=== PATIENT | male | born 1970 | race Caucasian/White ===

== ENCOUNTER 2016-03-22 13:06 | Emergency (ER) | payer BC, OTHER ==
[2016-03-22 13:11] VITALS: BP 138/85; PULSE 100; RESP 18; TEMP 98.1
[2016-03-22] MEDS ORDERED: HYDROmorphone 1 MG/ML 1 ML SYRINGE IM STA (13:27)
[2016-03-22] MEDS ORDERED: methylPREDNISolone SOD SUCCI 125 MG/2 ML VIAL IM ONE (13:27)
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
== END 2016-03-22 13:48 | disposition home or self-care (01) ==
LOC: EC 13:06
DX: G89.29 Other chronic pain (principal); M54.5 Low back pain; I10 Essential (primary) hypertension; Z79.899 Other long term (current) drug therapy; X58.XXXA Exposure to other specified factors, initial encounter
CPT/HCPCS: 99283; 96372 ×2; J2930; J1170

== ENCOUNTER 2021-05-10 09:12 | Observation (INO) | payer MEDICARE, BC ==
[2021-05-10] MEDS ORDERED: ASPIRIN 81 MG PO STA (09:20)
--- NOTE | 2021-05-10 09:20 | ED ---
General Adult HPI - General Chief complaint: Chest Pain Stated complaint: chest pain Time Seen by Provider: 05/10/21 09:20 Source: patient, RN notes reviewed Mode of arrival: ambulatory Limitations: no limitations - History of Present Illness Initial comments: Patient is a pleasant 50-year-old male presenting to the emergency Department with chest discomfort. Discomfort is described as tightness over the past couple of weeks. Patient has not felt well. Patient has been a little bit fatigued. Patient does get some associated dyspnea. Occasional palpitations. No history of similar symptoms previously. Discomfort is mild this time. No leg pain or leg swelling. - Related Data Home Medications Medication Instructions Recorded Confirmed Cyclobenzaprine [Flexeril] 10 mg PO HS 04/19/14 03/22/16 Gabapentin [Neurontin] 300 mg PO BID 04/19/14 03/22/16 Losartan Potassium 100 mg PO DAILY 04/19/14 03/22/16 Naproxen 500 mg PO Q12HR PRN 04/19/14 03/22/16 DULoxetine HCL [Cymbalta] 60 mg PO DAILY 03/22/16 03/22/16 oxyCODONE HCL/ACETAMINOPHEN 1 tab PO QID 03/22/16 03/22/16 [Percocet 10-325 mg] Previous Rx's Medication Instructions Recorded predniSONE 50 mg PO DAILY #4 tab 03/22/16 Allergies Allergy/AdvReac Type Severity Reaction Status Date / Time No Known Allergies Allergy Verified 05/10/21 09:19 Review of Systems ROS Statement: Those systems with pertinent positive or pertinent negative responses have been documented in the HPI. ROS Other: All systems not noted in ROS Statement are negative. Constitutional: Denies: fever Eyes: Denies: eye pain ENT: Denies: ear pain Respiratory: Reports: as per HPI, dyspnea Cardiovascular: Reports: as per HPI, chest pain, palpitations Endocrine: Reports: fatigue Gastrointestinal: Denies: abdominal pain, nausea, vomiting Genitourinary: Denies: dysuria Musculoskeletal: Denies: back pain Skin: Denies: rash Neurological: Denies: weakness Past Medical History Past Medical History: Hypertension, Musculoskeletal Disorder Additional Past Medical History / Comment(s): BACK PAIN History of Any Multi-Drug Resistant Organisms: None Reported Past Surgical History: Back Surgery Additional Past Surgical History / Comment(s): neck surgery, INGUINAL HERNIA REPAIR (1984),. LASIK EYE SURGERY. [facility] Past Anesthesia/Blood Transfusion Reactions: No Reported Reaction Past Psychological History: No Psychological Hx Reported Smoking Status: Never smoker Past Alcohol Use History: None Reported Past Drug Use History: Marijuana General Exam Limitations: no limitations General appearance: alert, in no apparent distress Head exam: Present: normocephalic Eye exam: Present: normal appearance Neck exam: Present: normal inspection Respiratory exam: Present: normal lung sounds bilaterally. Absent: chest wall tenderness Cardiovascular Exam: Present: regular rate, normal rhythm, normal heart sounds Expanded Peripheral pulses: 2+: Radial (R), Radial (L), Posterior Tibialis (R), Posterior Tibialis (L) GI/Abdominal exam: Present: soft. Absent: tenderness Extremities exam: Present: normal inspection. Absent: pedal edema, calf tenderness Neurological exam: Present: alert Psychiatric exam: Present: normal affect, normal mood Skin exam: Present: normal color Course Vital Signs 05/10/21 05/10/21 09:16 09:33 Temperature 98.5 F Pulse Rate 101 H 86 Respiratory 20 18 Rate Blood Pressure 107/86 116/83 O2 Sat by Pulse 96 98 Oximetry EKG Findings - EKG Comments: EKG Findings:: Sinus rhythm rate 87. AR 170. QRS 102. QT 373. QTC 417. Right axis. Normal QRS. No acute ST change. Medical Decision Making - Medical Decision Making Patient reevaluated and updated. Case discussed with Dr. Juarez, who will admit for observation for hospital. - Lab Data Result diagrams: 05/10/21 09:33 05/10/21 09:33 Lab Results 05/10/21 05/10/21 05/10/21 Range/Units 09:33 09:33 09:33 WBC 6.9 (3.8-10.6) k/uL RBC 5.27 (4.30-5.90) m/uL Hgb 16.7 (13.0-17.5) gm/dL Hct 48.0 (39.0-53.0) % MCV 91.1 (80.0-100.0) fL MCH 31.8 (25.0-35.0) pg MCHC 34.9 (31.0-37.0) g/dL RDW 12.9 (11.5-15.5) % Plt Count 267 (150-450) k/uL MPV 7.5 Neutrophils % 53 % Lymphocytes % 35 % Monocytes % 7 % Eosinophils % 2 % Basophils % 1 % Neutrophils # 3.6 (1.3-7.7) k/uL Lymphocytes # 2.4 (1.0-4.8) k/uL Monocytes # 0.4 (0-1.0) k/uL Eosinophils # 0.2 (0-0.7) k/uL Basophils # 0.1 (0-0.2) k/uL PT 10.5 (9.0-12.0) sec INR 1.0 (<1.2) APTT 24.7 (22.0-30.0) sec D-Dimer 0.26 (<0.60) mg/L FEU Sodium 137 (137-145) mmol/L Potassium 4.5 (3.5-5.1) mmol/L Chloride 108 H (98-107) mmol/L Carbon Dioxide 20 L (22-30) mmol/L Anion Gap 9 mmol/L BUN 15 (9-20) mg/dL Creatinine 1.00 (0.66-1.25) mg/dL Est GFR (CKD-EPI)AfAm >90 (>60 ml/min/1.73 sqM) Est GFR (CKD-EPI)NonAf 86 (>60 ml/min/1.73 sqM) Glucose 99 (74-99) mg/dL Calcium 9.0 (8.4-10.2) mg/dL Magnesium 2.0 (1.6-2.3) mg/dL Total Bilirubin 1.5 H (0.2-1.3) mg/dL AST 32 (17-59) U/L ALT 36 (4-49) U/L Alkaline Phosphatase 81 (38-126) U/L Troponin I (0.000-0.034) ng/mL NT-Pro-B Natriuret Pep pg/mL Total Protein 7.8 (6.3-8.2) g/dL Albumin 4.7 (3.5-5.0) g/dL 05/10/21 05/10/21 Range/Units 09:33 09:33 WBC (3.8-10.6) k/uL RBC (4.30-5.90) m/uL Hgb (13.0-17.5) gm/dL Hct (39.0-53.0) % MCV (80.0-100.0) fL MCH (25.0-35.0) pg MCHC (31.0-37.0) g/dL RDW (11.5-15.5) % Plt Count (150-450) k/uL MPV Neutrophils % % Lymphocytes % % Monocytes % % Eosinophils % % Basophils % % Neutrophils # (1.3-7.7) k/uL Lymphocytes # (1.0-4.8) k/uL Monocytes # (0-1.0) k/uL Eosinophils # (0-0.7) k/uL Basophils # (0-0.2) k/uL PT (9.0-12.0) sec INR (<1.2) APTT (22.0-30.0) sec D-Dimer (<0.60) mg/L FEU Sodium (137-145) mmol/L Potassium (3.5-5.1) mmol/L Chloride (98-107) mmol/L Carbon Dioxide (22-30) mmol/L Anion Gap mmol/L BUN (9-20) mg/dL Creatinine (0.66-1.25) mg/dL Est GFR (CKD-EPI)AfAm (>60 ml/min/1.73 sqM) Est GFR (CKD-EPI)NonAf (>60 ml/min/1.73 sqM) Glucose (74-99) mg/dL Calcium (8.4-10.2) mg/dL Magnesium (1.6-2.3) mg/dL Total Bilirubin (0.2-1.3) mg/dL AST (17-59) U/L ALT (4-49) U/L Alkaline Phosphatase (38-126) U/L Troponin I <0.012 (0.000-0.034) ng/mL NT-Pro-B Natriuret Pep <11 pg/mL Total Protein (6.3-8.2) g/dL Albumin (3.5-5.0) g/dL - Radiology Data Radiology results: image reviewed (Chest x-ray shows no acute process) Disposition Clinical Impression: Chest pain Disposition: ADMITTED IP TO THIS HOSP Is patient prescribed a controlled substance at d/c from ED?: No Referrals: Jermaine Holley MD [Primary Care Provider] - 1-2 days Decision Time: 11:29
[2021-05-10] MEDS ORDERED: NITROGLYCERIN OINT 1 INCH/GM PACKET TOPICAL STA (09:28)
[2021-05-10 09:53] LABS: Basophils # (A) 0.1 k/uL (0-0.2); Basophils % (A) 1 %; Eosinophils # (A) 0.2 k/uL (0-0.7); Eosinophils % (A) 2 %; HGB 16.7 gm/dL (13.0-17.5); Lymphocytes # (A) 2.4 k/uL (1.0-4.8); Lymphocytes % (A) 35 %; MCH 31.8 pg (25.0-35.0); MCHC 34.9 g/dL (31.0-37.0); MCV 91.1 fL (80.0-100.0); Mean Platelet Volume 7.5; Monocytes # (A) 0.4 k/uL (0-1.0); Monocytes % (A) 7 %; Neutrophils # (A) 3.6 k/uL (1.3-7.7); Neutrophils % (A) 53 %; Platelet Count 267 k/uL (150-450); RBC 5.27 m/uL (4.30-5.90); RDW 12.9 % (11.5-15.5); WBC 6.9 k/uL (3.8-10.6)
[2021-05-10 10:04] LABS: ALT 36 U/L (4-49); AST 32 U/L (17-59); African American GFR (CKD) >90 (>60 ml/min/1.73 sqM); Albumin 4.7 g/dL (3.5-5.0); Alkaline Phosphatase 81 U/L (38-126); Anion Gap 9 mmol/L; Blood Urea Nitrogen 15 mg/dL (9-20); Carbon Dioxide 20 mmol/L (22-30); Chloride 108 mmol/L (98-107); Glucose 99 mg/dL (74-99); Non-African American GFR(CKD) 86 (>60 ml/min/1.73 sqM); Potassium 4.5 mmol/L (3.5-5.1); Sodium 137 mmol/L (137-145); Total Bilirubin 1.5 mg/dL (0.2-1.3); Total Protein 7.8 g/dL (6.3-8.2)
[2021-05-10 10:07] LABS: Partial Thromboplastin Time 24.7 sec (22.0-30.0); Prothrombin Time 10.5 sec (9.0-12.0)
--- NOTE | 2021-05-10 10:18 | XR ---
EXAMINATION TYPE: XR chest 2V DATE OF EXAM: 05/10/2021 COMPARISON: NONE HISTORY: Shortness of breath TECHNIQUE: Frontal and lateral views of the chest are obtained. FINDINGS: Scattered senescent parenchymal changes noted. Hyperinflation compatible with COPD. No evidence for infiltrate. No evidence for atelectasis. Heart size is stable. Mediastinal structures are stable and grossly unremarkable. No evidence for hilar prominence. Degenerative changes dorsal spine. IMPRESSION: 1. No evidence for acute pulmonary disease.
[2021-05-10] MEDS ORDERED: ACETAMINOPHEN TAB 325 MG TAB PO PRN (11:25)
[2021-05-10] MEDS ORDERED: NITROGLYCERIN SL TABS 0.4 MG TAB SUBLINGUAL PRN (11:25)
[2021-05-10] MEDS ORDERED: NALOXONE 0.4 MG/ML 1 ML VIAL IVP PRN (11:25)
--- NOTE | 2021-05-10 13:30 | P.HPIM ---
History of Present Illness H&P Date: 05/10/21 Chief Complaint: Chest pain 50-year-old man with a medical history of hypertension, chronic back pain/neck pain presented with chest pain. Patient says that his symptoms have been present for 2 weeks, feels like a chest pressure substernally. Not particularly worse or better with exercise or activity. Not particularly better or worse with food or position. He is not a smoker. He does not have hyperlipidemia. He does not have diabetes. He has a family history of coronary artery disease in his father and uncle. He denies fevers, chills, nausea, vomiting, palpitat ions, syncope, presyncope, abdominal pain, constipation, diarrhea, dysuria, dyschezia, cough, numbness/weakness. He does also report increasing shortness of breath with his chest pain. In the emergency room, patient is 107/86, heart rate 101, 96% on room air. CBC is unremarkable. Chemistries are remarkable for mild alkalosis with CO2 of 20. LFTs are unremarkable. BNP is less than 11. Troponin is less than 0.012. Repeat troponin is less than 0.012. EKG demonstrates normal sinus rhythm with right axis deviation as well as S1 Q3 T3 pattern, also with poor progression of R waves in the precordial leads consistent with previous anterior myocardial infarction. Chest x-ray is hyperinflated consistent with possible COPD, otherwise normal. All Systems reviewed and pertinent positives and negatives noted in HPI, all other symptoms are negative Gen: awake, alert HEENT: normocephalic, atraumatic, good hearing acuity, moist mucous membranes Resp: good air exchange, breathing comfortably with no accessory muscle use CVS: good distal perfusion x 4, GI: soft, NTTP, ND : no SPT, no CVAT, ray catheter not present MSK: no pitting edema, no clubbing Neuro: non-focal, moving all extremities Psych: cooperative, euthymic mood Labs and imaging reviewed as above Assessment/plan: Chest pain, atypical Dyspnea -Admit to observation, telemetry -Cardiology consult -Trend troponins -Aspirin, statin -Beta julien -TSH, A1c in the morning -Lipid panel in the morning -Echocardiogram -Likely patient will benefit from an inpatient stress test versus angiogram -Nothing by mouth until assessed by cardiology Hypertension -Resume home all certain Patient is a full code DVT prophylaxis with enoxaparin daily Past Medical History Past Medical History: Hypertension, Musculoskeletal Disorder Additional Past Medical History / Comment(s): BACK PAIN History of Any Multi-Drug Resistant Organisms: None Reported Past Surgical History: Back Surgery Additional Past Surgical History / Comment(s): neck surgery, INGUINAL HERNIA REPAIR (1984),. LASIK EYE SURGERY. [facility] Past Anesthesia/Blood Transfusion Reactions: No Reported Reaction Past Psychological History: No Psychological Hx Reported Smoking Status: Never smoker Past Alcohol Use History: None Reported Past Drug Use History: Marijuana Medications and Allergies Home Medications Medication Instructions Recorded Confirmed Type Losartan Potassium 100 mg PO DAILY 04/19/14 05/10/21 History Ascorbic Acid [Vitamin C] 1,000 mg PO DAILY 05/10/21 05/10/21 History Cholecalciferol (Vitamin D3) 75 mcg PO DAILY 05/10/21 05/10/21 History [Vitamin D3 (3000 Iu)] Zinc 50 mg PO DAILY 05/10/21 05/10/21 History Allergies Allergy/AdvReac Type Severity Reaction Status Date / Time No Known Allergies Allergy Verified 05/10/21 12:34 Physical Exam Osteopathic Statement: *. No significant issues noted on an osteopathic structural exam other than those noted in the History and Physical/Consult. Vitals: Vital Signs Temp Pulse Resp BP Pulse Ox 05/10/21 09:33 86 18 116/83 98 05/10/21 09:16 98.5 F 101 H 20 107/86 96 Intake and Output 05/09/21 05/10/21 05/10/21 22:59 06:59 14:59 Other: Weight 98.883 kg Results CBC & Chem 7: 05/10/21 09:33 05/10/21 09:33 Labs: Abnormal Lab Results - Last 24 Hours (Table) 05/10/21 Range/Units 09:33 Chloride 108 H (98-107) mmol/L Carbon Dioxide 20 L (22-30) mmol/L Total Bilirubin 1.5 H (0.2-1.3) mg/dL
[2021-05-10] MEDS: NITROGLYCERIN OINT 1 INCH/GM PACKET TOPICAL SCH ×3 (14:50→19:56)
[2021-05-10] MEDS: METOPROLOL TARTRATE 12.5 MG TAB PO SCH (19:50)
[2021-05-10] MEDS ORDERED: ATORVASTATIN 80 MG TAB PO SCH (21:00)
[2021-05-11] MEDS: NITROGLYCERIN OINT 1 INCH/GM PACKET TOPICAL SCH (00:08)
[2021-05-11 07:00] LABS: Basophils # (A) 0.1 k/uL (0-0.2); Basophils % (A) 1 %; Eosinophils # (A) 0.2 k/uL (0-0.7); Eosinophils % (A) 2 %; HCT 49.4 % (39.0-53.0); HGB 16.6 gm/dL (13.0-17.5); Lymphocytes # (A) 2.9 k/uL (1.0-4.8); Lymphocytes % (A) 32 %; MCH 31.3 pg (25.0-35.0); MCHC 33.6 g/dL (31.0-37.0); Mean Platelet Volume 7.7; Monocytes # (A) 0.6 k/uL (0-1.0); Monocytes % (A) 7 %; Neutrophils # (A) 5.2 k/uL (1.3-7.7); Neutrophils % (A) 57 %; Platelet Count 245 k/uL (150-450); RBC 5.31 m/uL (4.30-5.90); RDW 12.3 % (11.5-15.5); WBC 9.2 k/uL (3.8-10.6)
[2021-05-11 07:25] VITALS: BP 109/71; PULSE 56; RESP 18; TEMP 97.9
[2021-05-11 07:32] LABS: African American GFR (CKD) 87 (>60 ml/min/1.73 sqM); Anion Gap 6 mmol/L; Blood Urea Nitrogen 16 mg/dL (9-20); Calcium 9.2 mg/dL (8.4-10.2); Carbon Dioxide 27 mmol/L (22-30); Chloride 104 mmol/L (98-107); Glucose 97 mg/dL (74-99); Non-African American GFR(CKD) 75 (>60 ml/min/1.73 sqM); Potassium 4.5 mmol/L (3.5-5.1); Sodium 137 mmol/L (137-145)
[2021-05-11] MEDS ORDERED: DOBUTamine DRIP for NUC MED 500 MG in DEXTROSE/WATER 1 250ML.BAG IV PRN (08:35)
[2021-05-11] MEDS ORDERED: SODIUM CHLORIDE 0.9% 1,000 ML IV SCH (08:45)
[2021-05-11] MEDS ORDERED: ASPIRIN 81 MG PO SCH (09:00)
[2021-05-11] MEDS ORDERED: ENOXAPARIN 40 MG/0.4 ML SYRINGE SQ SCH (09:00)
--- NOTE | 2021-05-11 09:48 | ECHOF ---
Referral Reason:chest pain MEASUREMENTS -------- HEIGHT: 177.8 cm WEIGHT: 98.9 kg BP: 100/65 RVIDd: 3.0 cm (< 3.3) IVSd: 1.0 cm (0.6 - 1.1) LVIDd: 4.5 cm (3.9 - 5.3) LVPWd: 1.1 cm (0.6 - 1.1) IVSs: 1.8 cm LVIDs: 2.9 cm LVPWs: 1.9 cm Ao Diam: 3.1 cm (2.0 - 3.7) AV Cusp: 2.2 cm (1.5 - 2.6) LA Diam: 3.6 cm (2.7 - 3.8) MV EXCURSION: 13.261 mm (> 18.000) MV EF SLOPE: 126 mm/s (70 - 150) EPSS: 0.9 cm MV E Marco Antonio: 0.73 m/s MV DecT: 158 ms MV A Marco Antonio: 0.62 m/s MV E/A Ratio: 1.18 RAP: 5.00 mmHg RVSP: 17.87 mmHg FINDINGS -------- Sinus rhythm. This was a technically difficult study with suboptimal apical views. The left ventricular size is normal. Left ventricular wall thickness is normal. Overall left vent ricular systolic function is normal with, an EF between 55 - 60 %. The right ventricle is normal in size. The left atrial size is normal. The right atrium was not well visualized. 5.0mg of Lumason was utilized for enhancement of images Interatrial and interventricular septum intact. There is no evidence of aortic regurgitation. There is no evidence of aortic stenosis. No mitral regurgitation. Mild tricuspid regurgitation present. There is no evidence of pulmonary hypertension. The right v entricular systolic pressure, as measured by Doppler, is 17.87mmHg. Trace/mild (physiologic) pulmonic regurgitation. The aortic root size is normal. IVC Not well visulized. Echo free space represents a pericardial fat pad. There is no pericardial effusion. CONCLUSIONS -------- 1. The left ventricular size is normal. 2. Left ventricular wall thickness is normal. 3. Overall left ventricular systolic function is normal with, an EF between 55 - 60 %. 4. Mild tricuspid regurgitation present. 5. Trace/mild (physiologic) pulmonic regurgitation. RUG UNDERLAY MACHINE OPERATOR: Hillary Lujan RDCS
--- NOTE | 2021-05-11 11:11 | CONS ---
CONSULTATION This is a 50-year-old gentleman with a history of previous narcotic use for pain issues which have since then been resolved, and he was weaned off narcotics a few years ago. About 4 years ago he had a chest pain and had a full workup that was negative; details unavailable. He comes into the hospital mainly with complaints of having some pressure and discomfort in his chest which he describes as ongoing episodes that are occurring for 2 weeks. He has a squeezing feeling in the chest that lasts for about 30 seconds, then it again relaxes. This comes on and off and has been going on for 2 weeks. He felt more constant pressure yesterday and he came in. He is not a smoker. There is no hyperlipidemia, but he does have hypertension. At the time of my evaluation, he is resting comfortably without symptoms. His troponin levels are normal. He is asymptomatic. PAST MEDICAL HISTORY: 1. Hypertension. 2. Episode of chest pain with a previous negative workup 4 years ago. 3. 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 MEDICATIONS: Medications at home include losartan 100 mg daily and vitamin supplements. ALLERGIES: NONE. PHYSICAL EXAMINATION: On examination, blood pressure is 118/70, pulse rate is 68 per minute, regular. HEENT unremarkable. Fundus was not examined by me. Neck is supple. No JVD. I do not hear a carotid bruit. Heart exam reveals S1, S2 heard normally. No significant murmurs. Lungs reveal decent air entry. Abdomen is soft, nontender. Lower extremities reveal normal pulses. No edema. Central nervous system is normal. EKG revealed sinus mechanism, nondiagnostic inferior Q-waves. No acute changes. LABORATORY DATA: All 3 levels of troponins are normal. IMPRESSION: 1. Atypical persistent chest pain. 2. Hypertension. 3. 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 RECOMMENDATIONS: I am recommending that we will do a dobutamine echo today, and if this is normal he can be discharged and follow up with his PCP. Will initiate hydration and also check a thyroid function test for this patient. I discussed my thoughts in detail with the patient. Thank you very much for the consult. MMODL / IJN: [id number] /
[2021-05-11] MEDS ORDERED: DOBUTamine DRIP for NUC MED 500 MG/250 ML BAG IV ONE (11:48)
[2021-05-11] MEDS ORDERED: METOPROLOL TARTRATE 5 MG/5 ML VIAL IVP ONE (11:53)
--- NOTE | 2021-05-11 11:53 | CT ---
EXAMINATION TYPE: CT angio chest DATE OF EXAM: 05/11/2021 COMPARISON: No previous CT scan is available for comparison HISTORY: chest pain and R/O PE CT DLP: 440.7 mGy.cm. Automated Exposure Control for Dose Reduction was Utilized. TECHNIQUE AND CONTRAST: CTA scan of the thorax is performed with IV Contrast, patient injected with 78mL mL of Isovue 370, pu lmonary embolism protocol. MIP Images are created on CT scanner and reviewed. FINDINGS: Questionable few filling defects in the left lower lobe subsegmental arteries (images #88 and 89, ser ies 4), possibly representing artifacts or chronic emboli. Otherwise no definite filling defect withi n the pulmonary trunk, main pulmonary arteries, lobar, segmental and proximal subsegmental branches t o suggest pulmonary embolism. Distal subsegmental branches are suboptimally assessed. The pulmonary t runk measures 2.9 cm. The ascending aorta measures 3.8 cm. Minimal left lower lobe linear pulmonary atelectasis. Unremarkable lungs otherwise. Patent central ai rways. No pleural or pericardial effusion. No gross cardiomegaly. No pathologically enlarged lymph no tita in the chest. Scattered hepatic hypodensities, likely representing hepatic cysts, for further nisha ctive ultrasound confirmation. Lower cervical spinal fixation, not completely included in the scan. N o aggressive bone lesion. IMPRESSION: 1. No major or central pulmonary embolism. The described tiny filling defects in the left lower lobe subsegmental pulmonary arteries could represent artifacts or chronic emboli. Please correlate clinica lly. 2. Hepatic hypodensities, possibly representing hepatic cysts, for further elective ultrasound confir mation. Other incidental findings as described above.
[2021-05-11] MEDS: METOPROLOL TARTRATE 12.5 MG TAB PO SCH (12:26)
--- NOTE | 2021-05-11 13:09 | P.DS ---
Providers Date of admission: 05/10/21 11:27 Expected date of discharge: 05/11/21 Attending physician: Leander Patino MD Primary care physician: Jermaine Holley MD Hospital Course: Chest pain, atypical Dyspnea Hypertension 50-year-old man with a medical history of hypertension, chronic back pain/neck pain presented with chest pain. In the emergency room, patient is 107/86, heart rate 101, 96% on room air. CBC is unremarkable. Chemistries are remarkable for mild alkalosis with CO2 of 20. LFTs are unremarkable. BNP is less than 11. Troponin is less than 0.012. Repeat troponin is less than 0.012. EKG demonstrates normal sinus rhythm with right axis deviation as well as S1 Q3 T3 pattern, also with poor progression of R waves in the precordial leads consistent with previous anterior myocardial infarction. Chest x-ray is hyperinflated consistent with possible COPD, otherwise normal. Troponins trended negative. Echo showed appropriate EF with no WMA, no pHTN. Dobutamine stress echo was performed and was negative for ischemia. CTA ruled out PE and parenchymal lung disease such as COPD. Pts RFs were assessed with ASCVD risk calculator and his risk for MACE in next 10 years was 5.8% - therefore, he was prescribed 40mg atorvastatin on discharge. Otherwise no medication changes. Gen: awake, alert HEENT: normocephalic, atraumatic, good hearing acuity, moist mucous membranes Resp: good air exchange, breathing comfortably with no accessory muscle use CVS: good distal perfusion x 4, GI: soft, NTTP, ND : no SPT, no CVAT, ray catheter not present MSK: no pitting edema, no clubbing Neuro: non-focal, moving all extremities Psych: cooperative, euthymic mood y Patient Condition at Discharge: Good Plan - Discharge Summary Discharge Rx Participant: No New Discharge Prescriptions: New Atorvastatin [Lipitor] 40 mg PO HS #30 tablet Acetaminophen Tab [Tylenol] 650 mg PO Q6HR PRN tab PRN Reason: Mild Pain Or Fever > 100.5 Continue Losartan Potassium 100 mg PO DAILY Zinc 50 mg PO DAILY Cholecalciferol (Vitamin D3) [Vitamin D3 (3000 Iu)] 75 mcg PO DAILY Ascorbic Acid [Vitamin C] 1,000 mg PO DAILY Discharge Medication List Losartan Potassium 100 mg PO DAILY 04/19/14 [History] Ascorbic Acid [Vitamin C] 1,000 mg PO DAILY 05/10/21 [History] Cholecalciferol (Vitamin D3) [Vitamin D3 (3000 Iu)] 75 mcg PO DAILY 05/10/21 [History] Zinc 50 mg PO DAILY 05/10/21 [History] Acetaminophen Tab [Tylenol] 650 mg PO Q6HR PRN tab 05/11/21 [Rx] Atorvastatin [Lipitor] 40 mg PO HS #30 tablet 05/11/21 [Rx] Follow up Appointment(s)/Referral(s): Wilfredo Eduardo MD [STAFF PHYSICIAN] - 1 Week Jermaine Holley MD [Primary Care Provider] - 1-2 days Patient Instructions/Handouts: Chest Pain (DC) Activity/Diet/Wound Care/Special Instructions: stress test 05/11/2021 - negative results Discharge Disposition: HOME SELF-CARE
--- NOTE | 2021-05-11 14:11 | ECHOS ---
STRESS ECHOCARDIOGRAM INDICATIONS: Chest pain BASELINE HEART RATE: 74 BASELINE BLOOD PRESSURE: 110/78 MAXIMUM HEART RATE: 145 MAXIMUM BLOOD PRESSURE: 150/84 85% MPHR: 143 100% MPHR: 168 METS: NA MAXIMUM STAGE REACHED: NA TOTAL EXERCISE TIME: 7:38 CLINICAL INFORMATION: Baseline EKG revealed normal sinus rhythm without significant ST-T changes. With dobutamine administration, the heart rate went up to 154 beats per minute, which is well above 85% of predicted maximal. Patient did not have any significant symptoms. EKG did not reveal any ST-segment changes to indicate ischemia. By EKG criteria, this is an unremarkable dobutamine stress test. Baseline echo images revealed normal wall motion and wall thickening of all segments. With dobutamine administration there was progressive increase in contractility noted, suggesting that there is no evidence of stress-induced ischemia on this dobutamine echo. There was no evidence of any arrhythmia. The quality of images was suboptimal and therefore echo contrast was administered to optimize the image quality. FINAL IMPRESSION: 1. By EKG criteria this is an unremarkable dobutamine stress test without any EKG changes to indicate ischemia. There was no arrhythmia. This is a negative dobutamine stress test by EKG criteria. 2. This is a normal dobutamine stress echocardiogram without evidence of ischemia. There was progressive increase in contractility noted. Echo contrast was used to optimize image quality. MMODL / IJN: [id number] /
[2021-05-11 15:20] LABS: Chol/HDL Ratio 3.68 Ratio; LDL Cholesterol,Calculated 91.6 mg/dL (0.0-131.0); VLDL Calculation 18.38 mg/dL (5.00-40.00)
== END 2021-05-11 13:27 | disposition home or self-care (01) ==
LOC: EC 09:12 → 6NMEDSUR 11:27
PROVIDERS: ADMIT Internal Medicine; ATTEND Internal Medicine
DX: R07.89 Other chest pain (principal); R06.00 Dyspnea, unspecified; I10 Essential (primary) hypertension; R53.83 Other fatigue; R00.2 Palpitations; R06.02 Shortness of breath; E87.3 Alkalosis; M47.812 Spondylosis without myelopathy or radiculopathy, cervical region; M47.816 Spondylosis without myelopathy or radiculopathy, lumbar region; I07.1 Rheumatic tricuspid insufficiency; Z79.899 Other long term (current) drug therapy; Z79.891 Long term (current) use of opiate analgesic; Z82.49 Family history of ischemic heart disease and other diseases of the circulatory system
CPT/HCPCS: 96372; 99285; 36415; 93005; 85379; 83880; 80061; 80053; 80048; 84443; 83735 ×2; 84484 ×2; 85025 ×2; 85610; 85730; 83036; 71046; 71275; G0378 ×2; C8929; C8930; J1250; J1650; Q9950; Q9967; 93306; 93351

== ENCOUNTER 2023-09-12 10:20 | Emergency (ER) | payer MEDICARE, BC ==
[2023-09-12 10:25] VITALS: TEMP 97.4
--- NOTE | 2023-09-12 10:32 | ED ---
Arrhythmia/Palpitations HPI - General Chief Complaint: Arrhythmia/Palpitations Stated Complaint: Tachy Time Seen by Provider: 09/12/23 10:26 Source: patient, RN notes reviewed, old records reviewed Mode of arrival: ambulatory Limitations: no limitations - History of Present Illness Initial Comments: This is a 52 male to the ER for evaluation of arrhythmia and palpitations today. Patient has seen primary care for arrhythmia palpitations this week and symptoms have been getting progressively worse. MD Complaint: rapid heart beat, "heart racing", "skipped beats", palpitations, irregular heart beat -: days(s) Context: occurred during rest, occurred during exertion Associated Symptoms: denies other symptoms - Related Data Home Medications Medication Instructions Recorded Confirmed Cyclobenzaprine [Flexeril] 10 mg PO HS 09/12/23 09/12/23 Gabapentin 600 mg PO BID 09/12/23 09/12/23 Losartan/Hydrochlorothiazide 1 tab PO DAILY 09/12/23 09/12/23 [Hyzaar 100-25 Tablet] Rimegepant Sulfate [Nurtec Odt] 75 mg PO DAILY PRN 09/12/23 09/12/23 Allergies Allergy/AdvReac Type Severity Reaction Status Date / Time No Known Allergies Allergy Verified 09/12/23 12:35 Review of Systems ROS Statement: Those systems with pertinent positive or pertinent negative responses have been documented in the HPI. ROS Other: All systems not noted in ROS Statement are negative. Past Medical History Past Medical History: Hypertension, Musculoskeletal Disorder Additional Past Medical History / Comment(s): BACK PAIN History of Any Multi-Drug Resistant Organisms: None Reported Past Surgical History: Back Surgery Additional Past Surgical History / Comment(s): neck surgery, INGUINAL HERNIA REPAIR (1984),. LASIK EYE SURGERY. [facility]. Spinal fusions, Past Anesthesia/Blood Transfusion Reactions: No Reported Reaction Past Psychological History: No Psychological Hx Reported Smoking Status: Never smoker Past Alcohol Use History: None Reported Past Drug Use History: Marijuana General Exam Limitations: no limitations General appearance: alert, in no apparent distress Head exam: Present: atraumatic, normocephalic, normal inspection Eye exam: Present: normal appearance, PERRL, EOMI. Absent: scleral icterus, conjunctival injection, periorbital swelling ENT exam: Present: normal exam, mucous membranes moist Neck exam: Present: normal inspection. Absent: tenderness, meningismus, lymphadenopathy Respiratory exam: Present: normal lung sounds bilaterally. Absent: respiratory distress, wheezes, rales, rhonchi, stridor Cardiovascular Exam: Present: regular rate, normal rhythm, normal heart sounds. Absent: systolic murmur, diastolic murmur, rubs, gallop, clicks GI/Abdominal exam: Present: soft, normal bowel sounds. Absent: distended, tenderness, guarding, rebound, rigid Extremities exam: Present: normal inspection, full ROM, normal capillary refill. Absent: tenderness, pedal edema, joint swelling, calf tenderness Back exam: Present: normal inspection Neurological exam: Present: alert, oriented X3, CN II-XII intact Psychiatric exam: Present: normal affect, normal mood Skin exam: Present: warm, dry, intact, normal color. Absent: rash Course Vital Signs 09/12/23 09/12/23 09/12/23 10:22 11:25 13:04 Temperature 97.4 F L Pulse Rate 113 H 94 95 Respiratory 18 16 18 Rate Blood Pressure 120/86 112/81 108/81 O2 Sat by Pulse 99 99 99 Oximetry - Reevaluation(s) Reevaluation #1: 09/12/23 11:38 Medical records reviewed Reevaluation #2: 09/12/23 11:38 Symptoms unchanged Reevaluation #3: 09/12/23 11:38 Informed of results questions answered Reevaluation #4: Was pt. sent in by a medical professional or institution (, PA, PARTICIPANT ADMINISTRATOR, urgent care, hospital, or senior living...) When possible be specific @ -no Did you speak to anyone other than the patient for history (EMS, parent, family, police, friend...)? What history was obtained from this source @ -no Did you review nursing and triage notes (agree or disagree)? Why? @ -agree Are old charts reviewed (outside hosp., previous admission, EMS record, old EKG, old radiological studies, urgent care reports/EKG's, senior living records)? Report findings @ -yes Differential Diagnosis (chest pain, altered mental status, abdominal pain women, abdominal pain men, vaginal bleeding, weakness, fever, dyspnea, syncope, hea dache, dizziness, GI bleed, back pain, seizure, CVA, palpatations, mental health, musculoskeletal)? @ -prior EKG interpreted by me (3pts min.). @ -yes X-rays interpreted by me (1pt min.). @ -yes negative for acute disease CT interpreted by me (1pt min.). @ -no U/S interpreted by me (1pt. min.). @ -no What testing was considered but not performed or refused? (CT, X-rays, U/S, labs)? Why? @ -none What meds were considered but not given or refused? Why? @ -none Did you discuss the management of the patient with other professionals (professionals i.e. Dr., PA, PARTICIPANT ADMINISTRATOR, lab, RT, psych nurse, social services designee, medical practice administrator, teacher, ammunition officer, case checker)? Give summary @ -no Was smoking cessation discussed for >3mins.? @ -no Was critical care preformed (if so, how long)? @ -no Were there social determinants of health that impacted care today? How? (Homelessness, low income, unemployed, alcoholism, drug addiction, transportation, low edu. Level, literacy, decrease access to med. care, fdc, rehab)? @ -none Was there de-escalation of care discussed even if they declined (Discuss DNR or withdrawal of care, Hospice)? DNR status @ -no What co-morbidities impacted this encounter? (DM, HTN, Smoking, COPD, CAD, Cancer, CVA, ARF, Chemo, Hep., AIDS, mental health diagnosis, sleep apnea, mo rbid obesity)? @ -none Was patient admitted / discharged? Hospital course, mention meds given and r oute, prescriptions, significant lab abnormalities, going to OR and other pertinent info. @ - 52 male to the ER for evaluation of palpitations today. Patient has no acute findings here in the ER will continue to follow-up in regards to getting clinic assistant for palpitations Discharge Undiagnosed new problem with uncertain prognosis? @ -no Drug Therapy requiring intensive monitoring for toxicity (Heparin, Nitro, Insulin, Cardizem)? @ -no Were any procedures done? @ -no Diagnosis/symptom? @ -Palpitations Acute, or Chronic, or Acute on Chronic? @ -Acute Uncomplicated (without systemic symptoms) or Complicated (systemic symptoms)? @ -Complicated Side effects of treatment? @ -no Exacerbation, Progression, or Severe Exacerbation? @ -exacerbation Poses a threat to life or bodily function? How? (Chest pain, [place], [place], pneumonia, PE, COPD, DKA, ARF, appy, cholecystitis, CVA, Diverticulitis, Homicidal, Suicidal, threat to staff... and all critical care pts) @ -yes palpitations and arrhythmia Reevaluation #5: Differential Palpitations Ventricular arrhythmias, atrial arrhythmias, myocardial infarction, anemia, thyrotoxicosis, electrolyte imbalance, hypokalemia, pulmonary embolism, pulmonary disease, drugs, alcohol, anxiety, stress.... This is not meant to be an all-inclusive list. EKG Findings - EKG Comments: EKG Findings:: EKG is sinus tachycardia 106 MI 170 QRS 105 QTc 420 - EKG Results: EKG: interpreted by TAYLOR Medical Decision Making - Medical Decision Making 52 male to the ER for evaluation of palpitations today. Patient has no acute findings here in the ER will continue to follow-up in regards to getting clinic assistant for palpitations - Lab Data Result diagrams: 09/12/23 10:36 09/12/23 10:36 Lab Results 09/12/23 09/12/23 09/12/23 Range/Units 10:36 10:36 10:36 WBC 7.5 (3.8-10.6) k/uL RBC 5.48 (4.30-5.90) m/uL Hgb 16.3 (13.0-17.5) gm/dL Hct 49.0 (39.0-53.0) % MCV 89.4 (80.0-100.0) fL MCH 29.7 (25.0-35.0) pg MCHC 33.2 (31.0-37.0) g/dL RDW 12.6 (11.5-15.5) % Plt Count 257 (150-450) k/uL MPV 7.9 Neutrophils % 57 % Lymphocytes % 31 % Monocytes % 7 % Eosinophils % 2 % Basophils % 1 % Neutrophils # 4.3 (1.3-7.7) k/uL Lymphocytes # 2.3 (1.0-4.8) k/uL Monocytes # 0.5 (0-1.0) k/uL Eosinophils # 0.2 (0-0.7) k/uL Basophils # 0.1 (0-0.2) k/uL PT 10.8 (10.0-12.5) sec INR 1.0 (<1.2) APTT 24.3 (22.0-30.0) sec Sodium 133 L (137-145) mmol/L Potassium 3.6 (3.5-5.1) mmol/L Chloride 100 (98-107) mmol/L Carbon Dioxide 27 (22-30) mmol/L Anion Gap 6 mmol/L BUN 14 (9-20) mg/dL Creatinine 0.90 (0.66-1.25) mg/dL Est GFR (CKD-EPI)AfAm >90 (>60 ml/min/1.73 sqM) Est GFR (CKD-EPI)NonAf >90 (>60 ml/min/1.73 sqM) Glucose 117 H (74-99) mg/dL Plasma Lactic Acid Jozef (0.7-2.0) mmol/L Calcium 9.5 (8.4-10.2) mg/dL Phosphorus 2.7 (2.5-4.5) mg/dL Magnesium 1.8 (1.6-2.3) mg/dL Total Bilirubin 1.4 H (0.2-1.3) mg/dL AST 34 (17-59) U/L ALT 39 (4-49) U/L Alkaline Phosphatase 66 (38-126) U/L Troponin I (0.000-0.034) ng/mL NT-Pro-B Natriuret Pep <20 pg/mL Total Protein 7.1 (6.3-8.2) g/dL Albumin 4.4 (3.5-5.0) g/dL TSH 0.597 (0.465-4.680) mIU/L 09/12/23 09/12/23 Range/Units 10:36 10:36 WBC (3.8-10.6) k/uL RBC (4.30-5.90) m/uL Hgb (13.0-17.5) gm/dL Hct (39.0-53.0) % MCV (80.0-100.0) fL MCH (25.0-35.0) pg MCHC (31.0-37.0) g/dL RDW (11.5-15.5) % Plt Count (150-450) k/uL MPV Neutrophils % % Lymphocytes % % Monocytes % % Eosinophils % % Basophils % % Neutrophils # (1.3-7.7) k/uL Lymphocytes # (1.0-4.8) k/uL Monocytes # (0-1.0) k/uL Eosinophils # (0-0.7) k/uL Basophils # (0-0.2) k/uL PT (10.0-12.5) sec INR (<1.2) APTT (22.0-30.0) sec Sodium (137-145) mmol/L Potassium (3.5-5.1) mmol/L Chloride (98-107) mmol/L Carbon Dioxide (22-30) mmol/L Anion Gap mmol/L BUN (9-20) mg/dL Creatinine (0.66-1.25) mg/dL Est GFR (CKD-EPI)AfAm (>60 ml/min/1.73 sqM) Est GFR (CKD-EPI)NonAf (>60 ml/min/1.73 sqM) Glucose (74-99) mg/dL Plasma Lactic Acid Jozef 1.3 (0.7-2.0) mmol/L Calcium (8.4-10.2) mg/dL Phosphorus (2.5-4.5) mg/dL Magnesium (1.6-2.3) mg/dL Total Bilirubin (0.2-1.3) mg/dL AST (17-59) U/L ALT (4-49) U/L Alkaline Phosphatase (38-126) U/L Troponin I <0.012 (0.000-0.034) ng/mL NT-Pro-B Natriuret Pep pg/mL Total Protein (6.3-8.2) g/dL Albumin (3.5-5.0) g/dL TSH (0.465-4.680) mIU/L - EKG Data -: EKG Interpreted by Me Disposition Clinical Impression: Palpitations Disposition: HOME SELF-CARE Condition: Good Instructions (If sedation given, give patient instructions): Heart Palpitations (ED) Is patient prescribed a controlled substance at d/c from ED?: No Referrals: Jammie Oliver MD [Primary Care Provider] - 1-2 days Time of Disposition: 12:30
[2023-09-12] MEDS: SODIUM CHLORIDE 0.9% 1,000 ML IV STA (10:47)
[2023-09-12 10:58] LABS: Basophils # (A) 0.1 k/uL (0-0.2); Basophils % (A) 1 %; Eosinophils # (A) 0.2 k/uL (0-0.7); Eosinophils % (A) 2 %; HGB 16.3 gm/dL (13.0-17.5); Lymphocytes # (A) 2.3 k/uL (1.0-4.8); Lymphocytes % (A) 31 %; MCH 29.7 pg (25.0-35.0); MCHC 33.2 g/dL (31.0-37.0); MCV 89.4 fL (80.0-100.0); Mean Platelet Volume 7.9; Monocytes # (A) 0.5 k/uL (0-1.0); Monocytes % (A) 7 %; Neutrophils # (A) 4.3 k/uL (1.3-7.7); Neutrophils % (A) 57 %; Platelet Count 257 k/uL (150-450); RBC 5.48 m/uL (4.30-5.90); RDW 12.6 % (11.5-15.5); WBC 7.5 k/uL (3.8-10.6)
[2023-09-12 11:11] LABS: Partial Thromboplastin Time 24.3 sec (22.0-30.0); Prothrombin Time 10.8 sec (10.0-12.5)
[2023-09-12 11:20] LABS: ALT 39 U/L (4-49); AST 34 U/L (17-59); African American GFR (CKD) >90 (>60 ml/min/1.73 sqM); Albumin 4.4 g/dL (3.5-5.0); Alkaline Phosphatase 66 U/L (38-126); Anion Gap 6 mmol/L; Blood Urea Nitrogen 14 mg/dL (9-20); Calcium 9.5 mg/dL (8.4-10.2); Carbon Dioxide 27 mmol/L (22-30); Chloride 100 mmol/L (98-107); Glucose 117 mg/dL (74-99); Magnesium 1.8 mg/dL (1.6-2.3); Non-African American GFR(CKD) >90 (>60 ml/min/1.73 sqM); Phosphorus 2.7 mg/dL (2.5-4.5); Potassium 3.6 mmol/L (3.5-5.1); Sodium 133 mmol/L (137-145); Total Bilirubin 1.4 mg/dL (0.2-1.3); Total Protein 7.1 g/dL (6.3-8.2)
[2023-09-12 11:25] LABS: NT-Pro-B-Type Natriuretic Pept <20 pg/mL
[2023-09-12] MEDS: MAGNESIUM OXIDE 400 MG TAB PO STA (11:57)
[2023-09-12] MEDS: POTASSIUM BICARBONATE/CIT AC 20 MEQ TABLET.EFF PO ONE (12:28)
[2023-09-12 13:05] VITALS: BP 108/81; PULSE 95; RESP 18
== END 2023-09-12 13:05 | disposition home or self-care (01) ==
LOC: EC 10:20
DX: R00.2 Palpitations (principal); R00.0 Tachycardia, unspecified; F12.90 Cannabis use, unspecified, uncomplicated
CPT/HCPCS: 36415; 80053; 83605; 83735; 83880; 84100; 84443; 84484; 85025; 85610; 85730; 93005; 96360; 99285